=== PATIENT | male | born 1965 | race Caucasian/White ===

== ENCOUNTER → 2019-08-15 | Day surgery (SDC) | payer BC ==
[2019-08-13 12:41] VITALS: BMI 25.7
[~2019-08-15] MED LIST: LACTATED RINGERS 1,000 ML IV SCH; LIDOCAINE 1% INJ 10MG/ML (20 ML MDV) ONE; PROPOFOL 10 MG/ML 20 ML VIAL IV ONE
[2019-08-15 09:41] VITALS: TEMP 97.2
--- NOTE | 2019-08-15 11:06 | P.PCN ---
Date of Procedure: 08/15/19 Description of Procedure: BRIEF HISTORY: Patient is a 53-year-old, pleasant, male with long-standing history of reflux disease presents for outpatient EGD for evaluation of GERD. He reports previously being on treatment with omeprazole therapy but stopped this approximately 6 weeks ago. Since that time he is been taking vinegar daily, he continues to have some symptoms. PROCEDURE PERFORMED: Esophagogastroduodenoscopy with biopsy. PREOPERATIVE DIAGNOSIS: GERD. ESTIMATED BLOOD LOSS: Minimal. IV sedation per anesthesia. PROCEDURE: After informed consent was obtained, the patient was brought into the endoscopy unit. IV sedation was administered by Anesthesia under continuous monitoring. Initially the Olympus GIF-190 video endoscope was inserted into the mouth. Esophagus intubated without any difficulty. It was gradually advanced into the stomach and duodenum and carefully examined. The bulb and the second part of the duodenum appeared normal, with biopsies taken. The scope at this time was withdrawn to the stomach, adequately insufflated with air, and upon careful examination, mucosa of the antrum, body, cardia and the fundus appeared normal except for some mild scattered antral erythema suggestive of mild antritis with biopsies of the antrum and body taken. The scope was then withdrawn into the esophagus. The GE junction was located at 43 cm from the incisors and appeared somewhat irregular with biopsies taken. The esophagus was significant for a alia rt segment of LA grade a esophagitis. There were no erosions or ulcerations seen and the patient tolerated the procedure well. IMPRESSION: 1. Mild antritis and LA grade a esophagitis. 2. Biopsies of duodenum, antrum/body and GE junction. RECOMMENDATIONS: The findings of this examination were discussed with the patient and his . Okay to resume diet. Await pathology from biopsies.
[2019-08-15 11:31] VITALS: BP 131/82; PULSE 62; RESP 18
== END ==
LOC: ORWHC2ENDO 09:19
PROVIDERS: ATTEND Internal Medicine
DX: K21.0 Gastro-esophageal reflux disease with esophagitis (principal); K29.50 Unspecified chronic gastritis without bleeding; I10 Essential (primary) hypertension; E78.5 Hyperlipidemia, unspecified; G47.33 Obstructive sleep apnea (adult) (pediatric); Z79.899 Other long term (current) drug therapy; Z99.89 Dependence on other enabling machines and devices
CPT/HCPCS: 88305; 43239; J2001; J2704

== ENCOUNTER 2021-08-06 08:01 | Day surgery (SDC) | payer BC ==
[2021-08-04 11:24] VITALS: BMI 25.0
[~2021-08-06 08:01] MED LIST changes: -LIDOCAINE 1% INJ 10MG/ML (20 ML MDV) ONE; -PROPOFOL 10 MG/ML 20 ML VIAL IV ONE
[2021-08-06 08:18] VITALS: TEMP 97.8
[2021-08-06] MEDS ORDERED: LACTATED RINGERS 1,000 ML IV ONE (08:18)
[2021-08-06] MEDS ORDERED: PROPOFOL 10 MG/ML 20 ML VIAL IV ONE (09:12)
--- NOTE | 2021-08-06 09:28 | P.PCN ---
Date of Procedure: 08/06/21 Procedure(s) Performed: BRIEF HISTORY: Patient is a 55-year-old pleasant white male scheduled for an elective colonoscopy as a part of evaluation of prior history of colon polyps. Last colonoscopy was 5 years ago. PROCEDURE PERFORMED: Colonoscopy with snare polypectomy. PREOPERATIVE DIAGNOSIS: History of colon polyps. IV sedation per Anesthesia. PROCEDURE: After informed consent was obtained, the patient, was brought into the endoscopy unit. IV sedation was administered by Anesthesia under continuous monitoring. Digital rectal examination was normal. Initially the Olympus CF-160 flexible video colonoscope was then inserted in the rectum, gradually advanced into the cecum without any difficulty. Careful examination was performed as the scope was gradually being withdrawn. Ileocecal valve and the appendiceal orifice were visualized and appeared normal. Prep was excellent. Mucosa of the cecum, we normal. In the ascending colon there was a 5 limited polyp that was removed by snare polypectomy. In the hepatic flexure there was a 1 cm polyp removed by snare polypectomy. Rest of the ascending colon, transverse colon, descending colon, sigmoid colon, and rectum appeared normal. Scattered sigmoid diverticulosis. Retroflexion was performed in the rectum and no lesions were seen. The patient tolerated the procedure well. IMPRESSION: 5 mm ascending colon polyp status post polypectomy 1 cm hepatic flexure polyp status post polypectomy Scattered sigmoid diverticulosis RECOMMENDATIONS: Findings of this examination were discussed with the patient as well as his family. He was advised to follow with the biopsy results. If the biopsy reveals adenoma he can have a repeat colonoscopy in 3- years
[2021-08-06 09:36] VITALS: RESP 16
[2021-08-06 09:50] VITALS: BP 132/76; PULSE 73
== END 2021-08-06 10:11 | disposition home or self-care (01) ==
LOC: ORWHC2ENDO 08:01
PROVIDERS: ATTEND Internal Medicine Gastroenterology
DX: Z12.11 Encounter for screening for malignant neoplasm of colon (principal); D12.2 Benign neoplasm of ascending colon; D12.3 Benign neoplasm of transverse colon; I10 Essential (primary) hypertension; G47.33 Obstructive sleep apnea (adult) (pediatric); K21.9 Gastro-esophageal reflux disease without esophagitis; Z86.010 Personal history of colon polyps; Z79.899 Other long term (current) drug therapy
CPT/HCPCS: 88305; 45385; J2704

== ENCOUNTER 2022-02-11 17:32 | Emergency (ER) | payer BC ==
[2022-02-11 17:37] VITALS: BP 137/92; PULSE 71; RESP 18; TEMP 98
[2022-02-11] MEDS ORDERED: DIPH,PERTUS(ACELL)TETVAC-LF 0.5 ML VIAL IM ONE (17:49)
--- NOTE | 2022-02-11 18:23 | ED ---
General Adult HPI - General Chief complaint: Wound/Laceration Stated complaint: Fall-L leg injury Time Seen by Provider: 02/11/22 17:46 Source: patient Mode of arrival: ambulatory Limitations: no limitations - History of Present Illness Initial comments: Patient is a 56-year-old male presenting with chief complaint of wound to the left julio. Patient states that he punctured his leg with a bolt. He was able to control bleeding with applying pressure with a dishtowel. Patient does not know when his last tetanus shot was. He denies any numbness, tingling, weakness, discoloration, discharge, fever, chills, nausea, vomiting, chest pain, shortness of breath. - Related Data Home Medications Medication Instructions Recorded Confirmed Atorvastatin [Lipitor] 10 mg PO DAILY 09/23/15 08/04/21 amLODIPine [Norvasc] 10 mg PO DAILY 09/23/15 08/04/21 Allergies Allergy/AdvReac Type Severity Reaction Status Date / Time No Known Allergies Allergy Verified 08/04/21 11:10 Review of Systems ROS Statement: Those systems with pertinent positive or pertinent negative responses have been documented in the HPI. ROS Other: All systems not noted in ROS Statement are negative. Past Medical History Past Medical History: GERD/Reflux, Hyperlipidemia, Hypertension, Sleep Apnea/CPAP/BIPAP Additional Past Medical History / Comment(s): USES CPAP History of Any Multi-Drug Resistant Organisms: None Reported Additional Past Surgical History / Comment(s): fatty tumor removed back, cyst removed ear, COLONOSCOPY Past Anesthesia/Blood Transfusion Reactions: No Reported Reaction Past Psychological History: No Psychological Hx Reported Smoking Status: Never smoker Past Alcohol Use History: None Reported Past Drug Use History: None Reported - Past Family History Mother Family Medical History: Cancer General Exam Limitations: no limitations General appearance: alert, in no apparent distress Head exam: Present: atraumatic, normocephalic, normal inspection Eye exam: Present: normal appearance, EOMI. Absent: scleral icterus Neck exam: Present: normal inspection Left Knee exam: Present: normal inspection, full ROM. Absent: tenderness Lower Leg exam: Present: full ROM, abrasion, laceration. Absent: tenderness, swelling, ecchymosis, deformity, crepitus, dislocation Ankle exam: Present: normal inspection, full ROM. Absent: tenderness Neurovascular tendon exam: Present: no vascular compromise. Absent: sensory deficit Neurological exam: Present: alert, oriented X3, CN II-XII intact Psychiatric exam: Present: normal affect, normal mood Course Vital Signs 02/11/22 17:35 Temperature 98.0 F Pulse Rate 71 Respiratory 18 Rate Blood Pressure 137/92 O2 Sat by Pulse 98 Oximetry Medical Decision Making - Medical Decision Making Patient is a 56-year-old male presenting with chief complaint of injury to the left julio. Patient states that he punctured the skin with a bolt. He does not know when his last tetanus shot was. On examination there is an abrasion to the left julio, edges cannot be approximated due to the nature of the injury. X-ray was obtained, no acute abnormalities or foreign body. Patient was given tetanus shot. Wound was dressed. I educated him on wound care and signs of infection. Report back to ER if any new or worsening symptoms. Follow-up with PCP this week. I discussed return parameters alarm symptoms. Answered all questions. Patient conveyed verbal understanding and agreed to the plan. My attending is Dr. Oscar. Disposition Clinical Impression: Abrasion Disposition: HOME SELF-CARE Condition: Good Instructions (If sedation given, give patient instructions): Acute Wound Care (ED), Abrasion (ED), Skin Tear (ED) Additional Instructions: Follow-up with PCP this week. Report back to ER with any new or worsening symptoms. Keep the wound clean and dry. Monitor for signs of infection, this includes but is not limited to redness, swelling, warmth, discharge, fever, chills. Is patient prescribed a controlled substance at d/c from ED?: No Referrals: Kavitha Hanson MD [Primary Care Provider] - 02/14/22 Time of Disposition: 18:34
--- NOTE | 2022-02-11 18:30 | XR ---
EXAMINATION TYPE: XR tibia fibula LT DATE OF EXAM: 02/11/2022 COMPARISON: NONE HISTORY: Pain. Puncture wound. TECHNIQUE: 4 views FINDINGS: I see no fracture nor dislocation. There is mild spurring at the ankle joint. The knee join t appears intact. No sign of any joint effusion. No evidence of a radiopaque foreign body. IMPRESSION: No fracture seen. Mild spurring at the ankle joint. No evidence of a foreign body.
== END 2022-02-11 18:35 | disposition home or self-care (01) ==
LOC: EC 17:32
DX: S80.812A Abrasion, left lower leg, initial encounter (principal); Z23 Encounter for immunization; E78.5 Hyperlipidemia, unspecified; I10 Essential (primary) hypertension; Z79.899 Other long term (current) drug therapy; W19.XXXA Unspecified fall, initial encounter; W22.8XXA Striking against or struck by other objects, initial encounter
CPT/HCPCS: 90471; 90715; 99284

== ENCOUNTER 2024-09-19 07:43 | Day surgery (SDC) | payer BC ==
[2024-09-17 14:06] VITALS: BMI 25.7
[2024-09-19] MEDS ORDERED: LIDOCAINE 1% (10MG/ML) FOR IV START INTRADERMA PRN (08:06)
[2024-09-19] MEDS ORDERED: LACTATED RINGERS 1,000 ML IV SCH (08:06)
[2024-09-19 08:09] VITALS: TEMP 97.2
[2024-09-19] MEDS: LACTATED RINGERS 1,000 ML IV ONE (08:13)
[2024-09-19] MEDS ORDERED: LIDOCAINE 2% (PF) 20 MG/ML 5 ML VIAL ONE (08:30)
[2024-09-19] MEDS ORDERED: PROPOFOL 10 MG/ML 20 ML VIAL IV ONE (08:30)
--- NOTE | 2024-09-19 08:30 | P.GSHP ---
History of Present Illness H&P Date: 09/19/24 Chief Complaint: GerdScreening colonoscopy This is a 4-year-old male with a for EGD and screening colonoscopy. Patient is issues gerd. Past Medical History Past Medical History: GERD/Reflux, Hyperlipidemia, Hypertension, Sleep Apnea/C PAP/BIPAP Additional Past Medical History / Comment(s): USES CPAP History of Any Multi-Drug Resistant Organisms: None Reported Additional Past Surgical History / Comment(s): fatty tumor removed back, cyst removed ear, COLONOSCOPY Past Anesthesia/Blood Transfusion Reactions: No Reported Reaction Past Psychological History: No Psychological Hx Reported Smoking Status: Never smoker Past Alcohol Use History: Rare Past Drug Use History: None Reported - Past Family History Mother Family Medical History: Cancer Additional Family Medical History / Comment(s): Bone, colon Medications and Allergies Home Medications Medication Instructions Recorded Confirmed Type Atorvastatin [Lipitor] 10 mg PO DAILY 09/23/15 09/19/24 History amLODIPine [Norvasc] 10 mg PO DAILY 09/23/15 09/19/24 History Allergies Allergy/AdvReac Type Severity Reaction Status Date / Time No Known Allergies Allergy Verified 09/19/24 08:06 Surgical - Exam Vital Signs Temp Pulse Resp BP Pulse Ox 97.2 F L 67 18 122/79 99 09/19/24 08:08 09/19/24 08:08 09/19/24 08:08 09/19/24 08:08 09/19/24 08:08 - General well developed, well nourished, no distress - Eyes PERRL - ENT normal pinna - Neck no masses - Respiratory normal expansion - Cardiovascular Rhythm: regular - Abdomen Abdomen: soft, non tender Assessment and Plan Plan: Gerd will perform EGD. Will also perform screening colonoscopy.
--- NOTE | 2024-09-19 08:49 | P.OP ---
Date of Procedure: 09/19/24 Preoperative Diagnosis: Gerd Screening colonoscopy Postoperative Diagnosis: Antral gastritis Mild esophagitis Minimal diverticulosis Procedure(s) Performed: EGD Colonoscopy Anesthesia: MAC Surgeon: Vin Nuñez Pathology: other (Antrum, esophagus) Condition: stable Disposition: PACU Description of Procedure: The patient was placed on the endoscopy table in the lateral position. He received IV sedation. The gas was placed oropharynx passed in the esophagus and the stomach. Scope was in place through the pylorus. The first and second portion of the duodenum appeared normal. Scope was then brought back to the antrum this appeared mildly Flaim. A biopsy was performed. Scope was then retr oflexed remainder of the stomach appeared normal. The GE junction was at 40 cm. The distal esophagus appeared mildly Flaim. Esophagus was biopsied. The proximal esophagus appeared normal. Scope withdrawn for patient. Next digital rectal exam was performed. This revealed no abnormalities. The flexible colonoscope was then placed patient anus passed throughout the entire colon. The ileocecal valve was visualized. The cecum, ascending and transverse colon appeared normal. The descending; there is some minimal diverticulosis. Scope was brought back in the rectum. This appeared normal. Scope was withdrawn from the patient.
[2024-09-19 09:10] VITALS: BP 116/75; PULSE 63; RESP 16
== END 2024-09-19 09:40 | disposition home or self-care (01) ==
LOC: ORWHC2ENDO 07:43
PROVIDERS: ATTEND Surgery
DX: Z12.11 Encounter for screening for malignant neoplasm of colon (principal); K21.00 Gastro-esophageal reflux disease with esophagitis, without bleeding; K29.50 Unspecified chronic gastritis without bleeding; K57.30 Diverticulosis of large intestine without perforation or abscess without bleeding; E78.5 Hyperlipidemia, unspecified; I10 Essential (primary) hypertension; G47.33 Obstructive sleep apnea (adult) (pediatric); Z79.899 Other long term (current) drug therapy
CPT/HCPCS: 88305; 45378; 43239; J2704; J2003